=== PATIENT | female | born 1935 | race Asian ===

== ENCOUNTER 2023-10-11 08:37 | Inpatient (IN) | payer OTHER, MEDICAID ==
[~2023-10-11] VITALS: Ht 157.5 cm; Wt 40.8 kg
[2023-10-11 08:43] VITALS: BP_SYST 152; PULSE 110; PULSE 61; RESP 18; TEMP 97; O2SAT 98
[2023-10-11] MEDS ORDERED: iohexoL 350 mgI/mL, 100 ML INFUS..BTL IV ONE (08:49)
[2023-10-11 09:16] LABS: BASOPHILS % (AUTO) 0.5 % (0.0-2.0); EOSINOPHILS % (AUTO) 0.5 % (0.0-4.0); HEMATOCRIT 38.5 % (36-48); HEMOGLOBIN 12.7 g/dL (12.0-16.0); LYMPHOCYTES # (AUTO) 1.2 K/uL (1.0-5.5); LYMPHOCYTES % (AUTO) 30.7 % (20.5-51.5); MEAN CORPUSCULAR HEMOGLOBIN 32 pg (27-31); MEAN CORPUSCULAR HGB CONC 33 % (32-36); MEAN CORPUSCULAR VOLUME 96 fL (79.0-98.0); MONOCYTES # (AUTO) 0.4 K/uL (0.0-1.0); MONOCYTES % (AUTO) 10.1 % (1.7-9.3); NEUTROPHILS # (AUTO) 2.3 K/uL (1.8-7.7); NEUTROPHILS % (AUTO) 58.2 % (40.0-70.0); PLATELET COUNT (AUTO) 211 K/uL (130-430); RED BLOOD CELL COUNT(AUTO) 4.02 MIL/uL (4.2-6.2); RED CELL DISTRIBUTION WIDTH 13.6 % (9.0-15.0)
[2023-10-11 09:31] LABS: PROTHROMBIN TIME 10.1 SECS (9.5-12.5)
[2023-10-11 09:33] LABS: ALANINE AMINOTRANSFERASE 32 U/L (12-78); ALBUMIN 3.8 g/dL (3.4-4.8); ANION GAP 8 (5-15); ASPARTATE AMINOTRANSFERASE 28 U/L (10-37); BILIRUBIN,DIRECT 0.3 mg/dL (0.0-0.3); CARBON DIOXIDE 29 mmol/L (23-29); CHLORIDE 101 mmol/L (98-107); CREATINE KINASE, TOTAL 42 U/L (26-192); CREATININE 1.09 mg/dL (0.55-1.30); GLUCOSE 349 mg/dL (74-106); POTASSIUM 4.7 mmol/L (3.5-5.1); SODIUM SERUM 138 mmol/L (136-145); TOTAL BILIRUBIN 0.8 mg/dL (0.0-1.0); TOTAL PROTEIN, SERUM 7.5 g/dL (6.4-8.3); UREA NITROGEN, BLOOD 23 mg/dL (8-21)
[2023-10-11 09:34] LABS: ALCOHOL, BLOOD < 3 mg/dL (<10)
[2023-10-11] MEDS ORDERED: DEXTROSE 50% JECT 50 ML DISP.SYRIN IVP PRN (10:45)
[2023-10-11] MEDS: ASPIRIN 300 MG/SUPP.RECT SUPP RC ONE (11:03)
[2023-10-11] MEDS: 0.45% NS 500 ML IV ONE (11:03)
[2023-10-11] MEDS ORDERED: LEVO75TA7 PO (11:10)
[2023-10-11] MEDS ORDERED: METF-379 PO (11:10)
[2023-10-11] MEDS ORDERED: AMIO100T4 PO (11:10)
[2023-10-11] MEDS ORDERED: DIGO125T PO (11:10)
[2023-10-11] MEDS ORDERED: CARB1TAB33 PO (11:10)
[2023-10-11] MEDS: INSULIN REGULAR, HUMAN 100 UNITS/ML, 3 ML VIAL (humuLIN R) SUBCUT PRN (11:33)
[2023-10-11] MEDS ORDERED: INSULIN NPH/REGULAR 70-30, 100 UNITS/ML, 3 ML VIAL ONE (11:35)
[2023-10-11] MEDS: hydrALAZINE HCL 20 MG/ML VIAL IVP PRN (11:38)
[2023-10-11 12:52] VITALS: BP_SYST 180; PULSE 59; RESP 18; TEMP 96.5; O2SAT 98
[2023-10-11] MEDS: CARBIDOPA/LEVODOPA 25/100 MG TABLET PO SCH (15:00)
[2023-10-11 15:14] VITALS: BP_SYST 162; PULSE 60; RESP 15; TEMP 96.8; O2SAT 93
[2023-10-11] MEDS: PANTOPRAZOLE SODIUM 40 MG/VIAL (PROTONIX) IVP ONE (15:14)
[2023-10-11 20:00] VITALS: BP_SYST 160; PULSE 60; RESP 20; TEMP 97; O2SAT 100
[2023-10-11 20:15] VITALS: O2SAT 100
[2023-10-11] MEDS: metFORMIN HCL 500 MG TABLET PO SCH (20:31)
[2023-10-12 00:09] VITALS: BP_SYST 143; PULSE 60; RESP 16; TEMP 97.5; O2SAT 99
[2023-10-12 02:00] VITALS: RESP 18; TEMP 97; O2SAT 100
[2023-10-12] MEDS: LEVOTHYROXINE SODIUM 0.075 MG TABLET PO SCH (06:15)
[2023-10-12 07:51] LABS: BASOPHILS % (AUTO) 0.4 % (0.0-2.0); EOSINOPHILS % (AUTO) 0.6 % (0.0-4.0); HEMATOCRIT 43.1 % (36-48); HEMOGLOBIN 14.4 g/dL (12.0-16.0); LYMPHOCYTES # (AUTO) 1.1 K/uL (1.0-5.5); LYMPHOCYTES % (AUTO) 20.7 % (20.5-51.5); MEAN CORPUSCULAR HEMOGLOBIN 31 pg (27-31); MEAN CORPUSCULAR HGB CONC 34 % (32-36); MEAN CORPUSCULAR VOLUME 94 fL (79.0-98.0); MONOCYTES # (AUTO) 0.4 K/uL (0.0-1.0); MONOCYTES % (AUTO) 7.5 % (1.7-9.3); NEUTROPHILS # (AUTO) 3.7 K/uL (1.8-7.7); NEUTROPHILS % (AUTO) 70.8 % (40.0-70.0); PLATELET COUNT (AUTO) 239 K/uL (130-430); RED CELL DISTRIBUTION WIDTH 13.4 % (9.0-15.0); WHITE BLOOD COUNT (AUTO) 5.3 K/uL (4.8-10.8)
[2023-10-12 08:00] VITALS: BP_SYST 135; PULSE 66; RESP 20; TEMP 97; O2SAT 98
[2023-10-12 08:26] LABS: ALANINE AMINOTRANSFERASE 19 U/L (12-78); ALBUMIN 3.4 g/dL (3.4-4.8); ANION GAP 10 (5-15); ASPARTATE AMINOTRANSFERASE 27 U/L (10-37); CALCIUM 8.8 mg/dL (8.4-11.0); CARBON DIOXIDE 26 mmol/L (23-29); CHLORIDE 100 mmol/L (98-107); CHOLESTEROL 175 mg/dL (<200); CREATININE 0.89 mg/dL (0.55-1.30); FREE T4 (FREE THYROXINE) 1.8 ng/dL (0.6-1.6); GLUCOSE 232 mg/dL (74-106); HDL CHOLESTEROL 53 mg/dL (>55); PHOSPHORUS 3.6 mg/dL (2.7-4.5); POTASSIUM 4.2 mmol/L (3.5-5.1); SODIUM SERUM 136 mmol/L (136-145); THYROID STIMULATING HORMONE 2.58 uIu/mL (0.34-4.82); TOTAL BILIRUBIN 1.1 mg/dL (0.0-1.0); TOTAL PROTEIN, SERUM 7.1 g/dL (6.4-8.3); TRIGLYCERIDES 119 mg/dL (30-150); UREA NITROGEN, BLOOD 18 mg/dL (8-21)
[2023-10-12] MEDS: PANTOPRAZOLE SODIUM 40 MG/VIAL (PROTONIX) IVP SCH (08:47)
[2023-10-12] MEDS: DIGOXIN 0.125 MG TABLET PO SCH (09:00)
[2023-10-12] MEDS: AMIODARONE HCL 200 MG TABLET PO SCH (09:00)
[2023-10-12] MEDS: ASPIRIN 81 MG TAB.CHEW PO SCH (09:00)
[2023-10-12] MEDS ORDERED: *LOVENOX 1MG/KG Q12H/PHARMACY XX PRN (10:30)
[2023-10-12 11:01] VITALS: BP_SYST 116; PULSE 64; RESP 16; TEMP 97.2; O2SAT 98
[2023-10-12] MEDS: D5/0.45 NS 1,000 ML IV SCH (11:05)
[2023-10-12] MEDS: ENOXAPARIN SODIUM 40 MG/0.4 ML SYRINGE SUBCUT ONE (11:05)
[2023-10-12 15:12] VITALS: BP_SYST 102; PULSE 69; RESP 16; TEMP 97.1; O2SAT 95
[2023-10-13] VITALS (7 sets, daily range): BP systolic 0–138; PULSE 60–120; RESP 0–20; TEMP 96.8–99; O2SAT 0–99
[2023-10-13 08:22] LABS: HEMATOCRIT 45.8 % (36-48); MEAN CORPUSCULAR HEMOGLOBIN 32 pg (27-31); MEAN CORPUSCULAR HGB CONC 33 % (32-36); MEAN CORPUSCULAR VOLUME 97 fL (79.0-98.0); PLATELET COUNT (AUTO) 240 K/uL (130-430); RED BLOOD CELL COUNT(AUTO) 4.74 MIL/uL (4.2-6.2); RED CELL DISTRIBUTION WIDTH 13.5 % (9.0-15.0)
[2023-10-13 08:59] LABS: ALANINE AMINOTRANSFERASE 27 U/L (12-78); ALBUMIN 2.9 g/dL (3.4-4.8); ANION GAP 22 (5-15); ASPARTATE AMINOTRANSFERASE 31 U/L (10-37); CALCIUM 8.5 mg/dL (8.4-11.0); CARBON DIOXIDE 15 mmol/L (23-29); CHLORIDE 98 mmol/L (98-107); CREATININE 1.34 mg/dL (0.55-1.30); GLUCOSE 398 mg/dL (74-106); SODIUM SERUM 135 mmol/L (136-145); TOTAL BILIRUBIN 2.5 mg/dL (0.0-1.0); TOTAL PROTEIN, SERUM 6.6 g/dL (6.4-8.3); UREA NITROGEN, BLOOD 31 mg/dL (8-21)
[2023-10-13] MEDS: ENOXAPARIN SODIUM 40 MG/0.4 ML SYRINGE SUBCUT SCH (09:03)
[2023-10-13] MEDS: DIGOXIN 0.5 MG/2 ML AMP IVP SCH (09:03)
[2023-10-13 09:30] LABS: WHITE BLOOD COUNT (AUTO) 1.5 K/uL (4.8-10.8)
[2023-10-13 10:59] LABS: BAND % (MANUAL) 10 % (0-6); BASOPHILS % (MANUAL) 0 % (0-2); EOSINOPHILS % (MANUAL) 0 % (0-7); LYMPHOCYTES % (MANUAL) 36 % (20-46); METAMYELOCYTES % 3 % (0-0); MONOCYTES % (MANUAL) 16 % (0-11); PLATELET ESTIMATE ADEQUATE (ADEQUATE)
[2023-10-13] MEDS ORDERED: NALOXONE HCL 0.4 MG/ML AMP (NARCAN) IVP PRN (16:45)
[2023-10-13] MEDS ORDERED: MORPHINE 2 MG/ML INJ. SYRINGE IVP PRN (16:45)
[2023-10-13] MEDS ORDERED: DEXTROSE 50% JECT 50 ML DISP.SYRIN IVP PRN (17:30)
[2023-10-13] MEDS ORDERED: INSULIN REGULAR, HUMAN 100 UNITS/ML, 3 ML VIAL (humuLIN R) SUBCUT PRN (17:30)
[2023-10-13] MEDS: NACL 0.9% 1,000 ML IV SCH (17:44)
[2023-10-13] MEDS ORDERED: D5W 1,000 ML IV PRN (17:45)
[2023-10-13] MEDS ORDERED: GLUCOSE (DEXTROSE) ORAL GEL -Adults PO PRN (17:45)
[2023-10-13] MEDS ORDERED: DEXTROSE 50%-WATER 50 ML DISP.SYRIN IVP PRN (17:45)
[2023-10-13] MEDS ORDERED: metroNIDAZOLE 500 mg/NS 100 ML IV SCH (22:00)
[2023-10-15] MEDS ORDERED: LEVOFLOXACIN 250 MG/D5W 50 ML IV SCH (19:00)
== END 2023-10-13 21:00 | DRG 871 ==
LOC: SED 08:37 → STU 10:30
PROVIDERS: ADMIT Internal Medicine; ATTEND Internal Medicine
DX: A41.9 Sepsis, unspecified organism (principal); A48.1 Legionnaires' disease; I63.9 Cerebral infarction, unspecified; J69.0 Pneumonitis due to inhalation of food and vomit; N17.0 Acute kidney failure with tubular necrosis; G81.94 Hemiplegia, unspecified affecting left nondominant side; I10 Essential (primary) hypertension; E11.65 Type 2 diabetes mellitus with hyperglycemia; E03.9 Hypothyroidism, unspecified; I48.0 Paroxysmal atrial fibrillation; I25.10 Atherosclerotic heart disease of native coronary artery without angina pectoris; Z95.0 Presence of cardiac pacemaker; Z86.73 Personal history of transient ischemic attack (TIA), and cerebral infarction without residual deficits; Z79.899 Other long term (current) drug therapy; Z88.8 Allergy status to other drugs, medicaments and biological substances
CPT/HCPCS: 36415; 70450-TC; 70496; 70498; 71045; 71250-TC; 80048; 80053; 80061; 80076; 80162; 82550; 82948; 83037; 83605; 83735; 83880; 84100; 84439; 84443; 84484; 85007; 85025; 85027; 85610; 85730; 86635; 86738; 92610-GN; 93005; 93306; 99291; G0378; G0482; J0360; J1160; J1650; J1815; J1956; J2470; J3490; Q9967